=== PATIENT | female | born 1990 | race Two or more races ===

== ENCOUNTER 2022-07-12 17:36 | Outpatient (CLI) | payer OTHER ==
[2022-07-13] MEDS ORDERED: CLEOCIN HCL300 MG PO (08:02)
== END 2022-07-13 10:10 | disposition home or self-care (01) ==
LOC: OBS/DEL 17:36
PROVIDERS: ATTEND Specialist
DX: O09.512 Supervision of elderly primigravida, second trimester (principal); O23.592 Infection of other part of genital tract in pregnancy, second trimester; B96.89 Other specified bacterial agents as the cause of diseases classified elsewhere; Z3A.23 23 weeks gestation of pregnancy

== ENCOUNTER 2022-10-29 13:30 | Inpatient (IN) | payer OTHER ==
[~2022-10-29] VITALS: Ht 160 cm; Wt 3.2 kg
[~2022-10-29 13:30] MED LIST: CLEOCIN HCL300 MG PO
[2022-11-07] MEDS ORDERED: PEPCID AC20 MG PO (02:23)
[2022-11-07] MEDS ORDERED: PRENATAL CAPLE1 EAC1 PO (02:23)
[2022-11-07] MEDS ORDERED: ANTIFUNGAL113 GM (02:24)
[2022-11-09] MEDS ORDERED: PERCOCET 5-3251 EACH PO (08:07)
[2022-11-09] MEDS ORDERED: DESLORATADINE5 MG (08:55)
== END 2022-11-09 13:13 | disposition home or self-care (01) | DRG 788 ==
LOC: OB/GYN 11-05 13:30 → LDR 11-07 10:53 → OB/GYN 11-07 16:20
PROVIDERS: Obstetrics & Gynecology; ADMIT Specialist; ATTEND Specialist
PROC: 4A1HXCZ Monitoring of Products of Conception, Cardiac Rate, External Approach (ICD-10-PCS; 2022-11-07)
PROC: 10D00Z1 Extraction of Products of Conception, Low, Open Approach (ICD-10-PCS; principal; 2022-11-07 13:30)
DX: O33.8 Maternal care for disproportion of other origin (principal); Z3A.40 40 weeks gestation of pregnancy; Z37.0 Single live birth; Z20.822 Contact with and (suspected) exposure to COVID-19